=== PATIENT | female | born 1985 | race Caucasian/White ===

== ENCOUNTER 2017-03-04 13:25 | Emergency (ER) | payer OTHER ==
[2017-03-04 14:45] VITALS: BP 104/61
--- NOTE | 2017-03-04 15:16 | UC ---
Throat Pain/Nasal Asael HPI - HPI Summary HPI Summary: pt presents with c/o sore throat, fever, chills, SAWYER X 2 days. - History of Current Complaint Chief Complaint: UCGeneralIllness Stated Complaint: SORE THROAT Time Seen by Provider: 03/04/17 14:55 Hx Obtained From: Patient Hx Last Menstrual Period: 02/18/17 ?: No Onset/Duration: Sudden Onset, Lasting Days Severity: Mild Associated Signs & Symptoms: Positive: Dysphagia, Fever - Allergies/Home Medications Allergies/Adverse Reactions: Allergies Allergy/AdvReac Type Severity Reaction Status Date / Time No Known Allergies Allergy Verified 03/04/17 14:40 Home Medications: Home Medications Ibuprofen TAB* [Advil TAB*] 400 mg PO ONCE PRN 03/04/17 [History Confirmed 03/04] PMH/Surg Hx/FS Hx/Imm Hx Previously Healthy: Yes - Surgical History Surgical History: Yes Surgery Procedure, Year, and Place: Cholecystectomy, [facility], [facility] - Family History Known Family History: Positive: Other - positive for URI Family History: no known cardio vascular issues in family--son does currently have asimilar rash - Social History Lives: With Family Alcohol Use: None Substance Use Type: None Smoking Status (MU): Never Smoked Tobacco Review of Systems Constitutional: Fever, Chills, Fatigue Skin: Negative Eyes: Negative ENT: Sore Throat Respiratory: Negative Cardiovascular: Negative Gastrointestinal: Negative Genitourinary: Negative Motor: Negative Neurovascular: Negative Musculoskeletal: Myalgia Neurological: Headache Psychological: Negative All Other Systems Reviewed And Are Negative: Yes Physical Exam Triage Information Reviewed: Yes Appearance: Ill-Appearing Vital Signs: Initial Vital Signs Temp 101.9 F 03/04/17 14:41 Pulse 105 03/04/17 14:41 Resp 16 03/04/17 14:41 BP 104/61 03/04/17 14:41 Pulse Ox 99 03/04/17 14:41 Vital Signs Reviewed: Yes ENT Exam: Other ENT: Positive: Tonsillar swelling, Tonsillar exudate Neck exam: Normal Respiratory Exam: Normal Cardiovascular Exam: Normal Musculoskeletal Exam: Normal Neurological Exam: Normal Psychological Exam: Normal Skin Exam: Normal Throat Pain/Nasal Course/Dx - Differential Dx/Diagnosis Differential Diagnosis/HQI/PQRI: Pharyngitis, Tonsillitis, Other - strep Provider Diagnoses: tonsillitis Discharge - Discharge Plan Condition: Stable Disposition: HOME Prescriptions: Penicillin VK TAB 500 MG(NF) [Penicillin VK 500 mg Tab(NF)] 500 mg PO TID #30 tab Patient Education Materials: Tonsillitis (ED) Referrals: No Primary Care Phys,NOPCP [Primary Care Provider] - If Needed
== END 2017-03-04 15:21 | disposition home or self-care (01) ==
LOC: UCCORT 13:25
DX: J03.90 Acute tonsillitis, unspecified (principal)
CPT/HCPCS: 87651; 99212; G0463

== ENCOUNTER 2018-05-07 08:34 | Emergency (ER) | payer BC, OTHER ==
[2018-05-07 08:44] VITALS: BP 114/65
--- NOTE | 2018-05-07 09:16 | UC ---
General HPI - HPI Summary HPI Summary: This is scribe [facility] documenting for attending Bear Gamboa MD. Patient is a 32 y/o F c/o sinus congestion and pressure lasting x 10-12 days, worsening today. Pain is described as pressure and rated a 4/10, per assessment. Assoc. Sx: Sinus congestion, fever, nasal discharge (initially green ; now yellow), SAWYER. She reports treating her symptoms with OTC medications. I, Dr. Gamboa, personally performed the services described in this documentation as scribed in my presence and it is both accurate and complete. - History of Current Complaint Chief Complaint: UCRespiratory Stated Complaint: SINUS COMPLAINT Time Seen by Provider: 05/07/18 08:42 Hx Obtained From: Patient Hx Last Menstrual Period: 02/18/17 Onset/Duration: Sudden Onset Current Severity: Mild Pain Intensity: 4 Associated Signs & Symptoms: Positive: Fever, Headache, Other - POS: Nasal discharge - Initially green; now yellow. - Allergy/Home Medications Allergies/Adverse Reactions: Allergies Allergy/AdvReac Type Severity Reaction Status Date / Time No Known Allergies Allergy Verified 05/07/18 08:41 PMH/Surg Hx/FS Hx/Imm Hx Endocrine History: Other Other Endocrine History: NEG: DM Cardiovascular History: Other Other Cardiovascular History: NEG: CAD, HTN - Surgical History Surgical History: Yes Surgery Procedure, Year, and Place: Cholecystectomy, 2013, [facility] - Family History Known Family History: Positive: Other - positive for URI Negative: Cardiac Disease, Hypertension, Diabetes Family History: no known cardio vascular issues in family--son does currently have asimilar rash - Social History Occupation: Employed Full-time Lives: With Family Alcohol Use: Occasionally Substance Use Type: None Smoking Status (MU): Never Smoked Tobacco Review of Systems Constitutional: Fever ENT: Nasal Discharge, Sinus Congestion Respiratory: Cough - Productive Neurological: Headache All Other Systems Reviewed And Are Negative: Yes Physical Exam - Summary Physical Exam Summary: VITAL SIGNS: Reviewed. GENERAL: Patient is a well-developed and nourished Female who is lying comfortable in the stretcher. Patient is not in any acute respiratory distress. HEAD AND FACE: Normocephalic EYES: PERRLA, EOMI x 2. EARS: Hearing grossly intact. MOUTH: Oropharynx within normal limits. NECK: Supple, trachea is midline, no adenopathy, no JVD, no carotid bruit. CHEST: Symmetric, no tenderness at palpation LUNGS: Clear to auscultation bilaterally. No wheezing or crackles. CVS: Regular rate and rhythm, S1 and S2 present, no murmurs or gallops appreciated. ABDOMEN: Soft, non-tender. Bowel sounds are normal. No abdominal abnormal pulsations. EXTREMITIES: Full ROM in all major joints, no edema, no cyanosis or clubbing. NEURO: Alert and oriented x 3. No acute neurological deficits. Speech is normal and follows ENT: Nasal mucosa, erythema, (-) lymphadenopathy, (+) post nasal drip. Triage Information Reviewed: Yes Vital Signs: Initial Vital Signs Temp 98.0 F 05/07/18 08:38 Pulse 78 05/07/18 08:38 Resp 18 05/07/18 08:38 BP 114/65 05/07/18 08:38 Pulse Ox 100 05/07/18 08:38 Vital Signs Reviewed: Yes Course/Dx - Course Course Of Treatment: Patient is a 32-year-old female who presents to the urgent care with chief complaint of having fevers, chills, sinus pain and pressure, postnasal drip, for the last 12-14 days. Patient is taking [id number] medications without any improvement of symptoms. He since that the patient has an acute sinusitis therefore the patient will be given a prescription for Augmentin. Patient is hemodynamically stable, alert & oriented 3. - Differential Dx - Multi-Symptom Provider Diagnoses: Acute sinusitis Discharge - Sign-Out/Discharge Documenting (check all that apply): Patient Departure All imaging exams completed and their final reports reviewed: No Studies - Discharge Plan Condition: Stable Disposition: HOME Prescriptions: Amoxicillin PO (*) [Amoxicillin 875 MG (*)] 875 mg PO BID #20 tab Patient Education Materials: Sinusitis (ED) Referrals: [facility] [Outside] - 3 Days Additional Instructions: Take medications as instructed and adhere to plan Take Acetaminophen or ibuprofen for pain or fever Increase your fluid intake Return to the or go to the emergency department if symptoms worsen Follow-up with primary care physician in next 2-3 days - Billing Disposition and Condition Condition: STABLE Disposition: Home - Attestation Statements Document Initiated by Scribe: Yes Documenting Scribe: Layo Sheehan Provider For Whom Scribe is Documenting (Include Credential): Bear Gamboa MD. Scribe Attestation: I, Layo Sheehan, scribed for Bear Gamboa MD. on 05/07/18 at 1610. Scribe Documentation Reviewed: Yes Provider Attestation: The documentation as recorded by the scribe, Layo Sheehan accurately reflects the service I personally performed and the decisions made by me, Bear Gamboa MD.
== END 2018-05-07 09:15 | disposition home or self-care (01) ==
LOC: UCEAST 08:34
DX: J01.90 Acute sinusitis, unspecified (principal)
CPT/HCPCS: 99212; G0463